=== PATIENT | female | born 1995 | race Caucasian/White ===

== ENCOUNTER 2022-10-01 06:10 | Inpatient (IN) | payer OTHER ==
[2022-10-01] VITALS (9 sets, daily range): BP systolic 113–143; BP diastolic 65–82
[2022-10-01] MEDS ORDERED: D5 LR IV SOLUTION 1,000 ML IV SCH (07:00)
[2022-10-01] MEDS ORDERED: MINERAL OIL 30 ML UDC TOP PRN (07:00)
--- NOTE | 2022-10-01 07:31 | History & Physical-OB ---
OB - Chief Complaint & HPI Date/Time Date of Admission: Date of Admission: Oct 01, 2022 at 06:41 Date seen by a Provider: Oct 01, 2022 Time Seen by a Provider: 07:00 Chief Complaint/History OB-Reason for Admission/Chief: Onset of Labor Hx : 1 Hx Para: 0 Expected Date of Delivery: Oct 12, 2022 Gestational Age in Weeks: 38 Gestational Age in Days: 3 History of Labs A+, antibody neg. RI. HIV/RPR/HepB/HepC neg. GC/chlamydia neg. GBS neg. Allergies and Home Medications Allergies Coded Allergies: No Known Drug Allergies (Unverified , 10/01/22) Patient Home Medication List Home Medication List Reviewed: Yes Vit No.124/Iron/FA ( Vitamin Tablet) 27 Mg Iron-800 Mcg Tablet, 1 EACH PO, (Reported) Entered as Reported by: LONNIE PERDOMO on 10/01/22 0751 Last Action: New Order OB - History Information Induced Hypertension: No Maternal Gestational Diabetes: No Hemorrhage: No Obstetrical History Hx : 1 Hx Para: 0 Patient Past Medical History PMHx: Denies PSurgHx: Denies Social History/Family History Alcohol Use: Denies Use Smoking Cessation: Never smoker Immunizations GBS Status: Negative OB - Admission Exam Physical Exam HEENT: NCAT Abdomen: Gravid Extremities: Normal Cervical Dilatation: other (suspect to be complete, patient doesn't tolerate exam and declines further attempt) Effacement: 100% Station: +1 Membranes: Ruptured Amniotic Fluid: Clear OB - Assessment/Plan/Diagnosis Assessment Assessment: active labor Admission Dx G1 at 38w3d presented with SROM at home around 5 am, contractions since last night. She declines continuous monitoring, cervical exam and IV placement or labs. Discussed the risk of not knowing status to know if any interventions may be indicated for distress, and she states she accepts that risk as well as risk of difficult resuscitation if she has hemorrhage without IV access. Admission Status: Inpatient Order (span 2 midnights) Reason for Inpatient Admission: Labor, delivery and course Plan Plan: Expectant Management LONNIE PERDOMO MD Oct 01, 2022 07:31
[2022-10-01] MEDS ORDERED: PREN-142 PO (07:51)
--- NOTE | 2022-10-01 08:23 | Labor Progress Note ---
Labor Progress Note Labor Progress Note Date Seen by Provider: Oct 01, 2022 Time Seen by Provider: 08:00 Subjective: Pt denies complaints. Objective: Cervical exam: declined heart tones: 138 beats per minute Tocometer: declined Assessment/Plan: Aminah Orr is a (27 /Para 1 / 0,Gestational Age (wks)38 here for active labor. Discussed need to check on status and she agreed, unable to trace well with external monitor and she declined further attempts, did accept doppler and FHTs were 130s. Discussed with her that I am concerned if we can't monitor well we cannot know for sure if there is any distress and that our goal is for her to have a healthy baby even if that requires an assisted type of delivery. She declines monitor or exam at this time. Bar placed over bed to try different positioning for her as she reports difficulty pushing, offered a single finger exam to see if head is moving with pushing and to help assistant softball coach pushing and she declines. Anticipate vaginal delivery. Vitals - Labs Vital Signs - I&O Vital Signs Date Time Temp Pulse Resp B/P (MAP) Pulse Ox O2 Delivery O2 Flow Rate FiO2 10/01/22 06:50 36.6 88 20 124/82 (96) 98 Room Air LONNIE PERDOMO MD Oct 01, 2022 08:22
[2022-10-01] MEDS ORDERED: OXYTOCIN (PITOCIN) 10 UNIT/ML VIAL ONE (09:00)
[2022-10-01] MEDS ORDERED: LIDOCAINE 1% INJ 10 ML VIAL ONE (10:38)
[2022-10-01] MEDS ORDERED: WITCH HAZEL(TUCKS) 40 EA JAR ONE (11:17)
[2022-10-01] MEDS ORDERED: BENZOCAINE/MENTHOL (DERMOPLAST) 56 ML CAN TP ONE (11:17)
--- NOTE | 2022-10-01 11:40 | OB Labor & Delivery Record ---
Vag Delivery Note Vag Delivery Note Date of Delivery: 10/01/22 Preoperative Diagnosis: Aminah Orr is a (27 /Para 1 / 0,Gestational Age (wks)38with 3 days Postoperative Diagnosis: Same Surgeon: LONNIE PERDOMO Anesthesia: None Delivery Type: Spontaneous vaginal delivery Findings: Viable female infant, apgars 8/9, weight pending Lacerations: second degree perineal, right labial Intact placenta with 3 vessel cord. No nuchal cord, body cord or shoulder dystocia Estimated Blood Loss: 350 ml Complications: None Condition: Stable Description of Procedure: The patient is a 27 year old female who presented in active labor. She was admitted and informed consent was obtained. Her labor course was remarkable for patient declined monitoring and cervical exams. She progressed to complete dilatation and began to push on all fours. She was then set up for delivery. The 's head was delivered atraumatically in the OA position. The shoulders and remainder of the 's body were then delivered without difficulty. Upon delivery, the infant was vigorous and placed next to mother's abdomen per her request. Mother requested delayed cord clamping until the cord was no longer pulsing, at that time the cord was doubly clamped and cut and the infant was placed on maternal chest. An intact placenta with 3- vessel cord delivered via [place] and there was found to be minimal bleeding.~ Vigorous fundal massage was performed and the fundus was found to be firm. IM oxytocin was recommended and discussed the benefit of preventive treatment for hemorrhage and she declined. Examination of the vagina and perineum revealed a second degree perineal laceration repaired in the usual fashion with 3-0 vicryl rapide suture. A right labial laceration was repaired in simple running fashion with subcutaneous stitches at skin level. A left periurethral abrasion was noted that did not require repair. Following the repair, sponge, instrument and needle counts were correct. Mom and baby were both in stable condition in the labor suite. Vitals - Labs Vital Signs - I&O Vital Signs Date Time Temp Pulse Resp B/P (MAP) Pulse Ox O2 Delivery O2 Flow Rate FiO2 10/01/22 06:50 36.6 88 20 124/82 (96) 98 Room Air LONNIE PERDOMO MD Oct 01, 2022 11:40
[2022-10-01] MEDS ORDERED: WITCH HAZEL(TUCKS) 40 EA JAR TOP PRN (11:45)
[2022-10-01] MEDS ORDERED: BENZOCAINE/MENTHOL (DERMOPLAST) 56 ML CAN TP PRN (11:45)
[2022-10-01] MEDS ORDERED: CATHETER FLUSH 10 ML SYR IV SCH (14:00)
[2022-10-01] MEDS ORDERED: DOCUSATE SODIUM 100 MG (COLACE) CAP PO SCH (21:00)
--- NOTE | 2022-10-02 09:31 | Discharge Summary ---
Discharge Summary Hospital Course Problems/Diagnosis: (1) Spontaneous vaginal delivery Status: Acute Assessment & Plan: on 10/01/22, pt declined continuous monitoring during labor and at times declined intermittent monitoring when recommended, declined antepartum or labs. Discussed the rationale behind CBC to see if iron is needed for anemia, but ultimately she declined prior to discharge. Clinically uncomplicated course with no symptoms of anemia or other complications. Hospital Course Date of Admission: Oct 01, 2022 at 06:41 Admission Diagnosis : Term intrauterine at 38 weeks Active labor Spontaneous rupture of membranes Family Physician/Provider: [facility] Date of Discharge: 10/02/22 Discharge Diagnosis See problem list Hospital Course: Pt presented in active labor after SROM at home shortly before arrival. She had significant discomfort with cervical exam and declined further attempts, declined continuous monitoring, stated she would accept intermittent, but at times when recommending to monitor she asked to wait and declined until she was ready. She delivered via a viable female , had second degree perineal laceration and right labial laceration repair. She had a clinically uncomplicated course, did decline labs, and sometimes vitals, but the vitals that were obtained were normal and she denied chest pain, shortness of breath, dizziness or swelling. Labs and Pending Lab Test: Home Meds Active Reported Vitamin Tablet ( Vit No.124/Iron/FA) 27 Mg Iron-800 Mcg Tablet 1 Each PO Assessment/Pt DC Instructions Follow up with Dr. Edwards in 6 weeks for visit. Discharge Diet: No Restrictions Activity as Tolerated: Yes (avoid strenuous activity x 6 weeks) Discharge Physical Examination Allergies: Coded Allergies: No Known Drug Allergies (Unverified , 10/01/22) General Appearance: No Apparent Distress, WD/WN Respiratory: Lungs Clear, Normal Breath Sounds Cardiovascular: Regular Rate, Rhythm, No Murmur Extremity: No Pedal Edema LONNIE PERDOMO MD Oct 02, 2022 09:31
[2022-10-02 13:50] VITALS: BP 107/57
== END 2022-10-02 13:50 | disposition home or self-care (01) | DRG 807 ==
LOC: WSo 06:10 → LDRP 06:10 → WSo 06:41 → LDRP 06:41
PROVIDERS: ADMIT Family Medicine; ATTEND Family Medicine
PROC: 10E0XZZ Delivery of Products of Conception, External Approach (ICD-10-PCS; principal; 2022-10-01)
PROC: 0UQMXZZ Repair Vulva, External Approach (ICD-10-PCS; 2022-10-01)
DX: O70.1 Second degree perineal laceration during delivery (principal); Z37.0 Single live birth; Z3A.38 38 weeks gestation of pregnancy
CPT/HCPCS: 99212